=== PATIENT | male | born 1965 | race Caucasian/White ===

== ENCOUNTER 2022-10-05 06:06 | Day surgery (SDC) | payer BC ==
[2022-09-30 15:25] VITALS: BMI 31.8
[2022-10-05 06:36] VITALS: BP 154/92; PULSE 60; RESP 18; TEMP 97
[2022-10-05] MEDS ORDERED: TRANEXAMIC ACID 1000 MG/10 ML VIAL IVPUSH ONE (07:00)
[2022-10-05] MEDS ORDERED: CEFAZOLIN 2 GM in DEXTROSE 5%-WATER - 50 ML IVPB ONE (07:00)
[2022-10-05] MEDS ORDERED: MIDAZOLAM HCL 2 MG/2 ML SINGLE DOSE VIAL ONE (07:12)
[2022-10-05] MEDS ORDERED: ONDANSETRON 4 MG/2 ML VIAL ONE (07:12)
[2022-10-05] MEDS ORDERED: DEXAMETHASONE SOD PHOSPHATE 4 MG/1 ML VIAL ONE (07:12)
[2022-10-05] MEDS ORDERED: FENTANYL CITRATE/PF 50 MCG/ML VIAL ONE (07:13)
[2022-10-05] MEDS ORDERED: BUPIVACAINE HCL/PF 0.5% (5MG/ML) 10 ML VIAL ONE (07:13)
[2022-10-05] MEDS ORDERED: BUPIVACAINE LIPOSOME/PF (EXPAREL) 266 MG/20 ML VIAL ONE (07:13)
== END 2022-10-05 07:36 | disposition home or self-care (01) ==
LOC: FASUSAT 06:06
PROVIDERS: ATTEND Orthopaedic Surgery
PROC: 0SRC0JZ Replacement of Right Knee Joint with Synthetic Substitute, Open Approach (ICD-10-PCS; principal; 2022-10-05)
DX: Z53.8 Procedure and treatment not carried out for other reasons (principal); M17.11 Unilateral primary osteoarthritis, right knee

== ENCOUNTER 2022-10-24 05:59 | Day surgery (SDC) | payer BC ==
[2022-10-18 11:39] VITALS: BMI 31.8
[2022-10-24] MEDS ORDERED: oxyCODONE HCL 5 MG TABLET PO PRN ×3 (06:51→10:14)
[2022-10-24] MEDS ORDERED: ONDANSETRON 4 MG/2 ML VIAL IVPUSH PRN ×3 (06:51→12:52)
[2022-10-24] MEDS ORDERED: ACETAMINOPHEN 325 MG TABLET (FP) PO PRN (06:51)
[2022-10-24] MEDS ORDERED: LACTATED RINGERS SOLUTION 1,000 ML IV SCH (07:00)
[2022-10-24] MEDS ORDERED: CELECOXIB 200 MG CAPSULE PO ONE (07:00)
[2022-10-24] MEDS ORDERED: MIDAZOLAM HCL 2 MG/2 ML SINGLE DOSE VIAL ONE ×2 (07:17→08:08)
[2022-10-24] MEDS ORDERED: BUPIVACAINE HCL/PF 0.5% (5 MG/ML) 30 ML VIAL IJ ONE (07:18)
[2022-10-24] MEDS ORDERED: BUPIVACAINE LIPOSOME/PF (EXPAREL) 266 MG/20 ML VIAL ONE (07:18)
[2022-10-24] MEDS ORDERED: ACETAMINOPHEN INJECTION 100 ML IVPB ONE (07:19)
[2022-10-24] MEDS ORDERED: CEFAZOLIN 2 GM in DEXTROSE 5%-WATER - 50 ML IVPB ONE (07:30)
[2022-10-24] MEDS ORDERED: PROPOFOL 20 ML ONE ×3 (07:54→08:56)
[2022-10-24] MEDS ORDERED: ceFAZolin SODIUM 1 GM VIAL ONE ×2 (08:01)
[2022-10-24] MEDS ORDERED: TRANEXAMIC ACID 1000 MG/10 ML VIAL ONE ×2 (08:01→09:05)
[2022-10-24] MEDS ORDERED: ONDANSETRON 4 MG/2 ML VIAL ONE (08:34)
[2022-10-24] MEDS ORDERED: KETOROLAC TROMETHAMINE 30 MG/1 ML VIAL ONE (08:34)
[2022-10-24] MEDS ORDERED: DEXAMETHASONE SOD PHOSPHATE 4 MG/1 ML VIAL ONE (08:34)
[2022-10-24] MEDS ORDERED: MAGNESIUM HYDROX 2400MG/30ML ORAL SUSPENSION 30 ML CUP PO PRN (10:09)
[2022-10-24] MEDS ORDERED: MAG HYDROX/AL HYDROX/SIMETH 30 ML UNIT-DOSE CUP PO PRN (10:09)
[2022-10-24] MEDS ORDERED: morphine SULFATE 4 MG/ML VIAL IVPUSH PRN (10:15)
[2022-10-24] MEDS: oxyCODONE HCL 5 MG TABLET PO PRN ×3 (13:23→21:05)
[2022-10-24] MEDS: ACETAMINOPHEN 1000 MG/100 ML BAG IVPB SCH (16:31)
[2022-10-24] MEDS: CEFAZOLIN SODIUM 2 GM in DEXTROSE 5%-WATER 100 ML IVPB SCH (18:06)
[2022-10-24] MEDS: ASPIRIN 81 MG CHEWABLE TABLETS PO SCH (21:04)
[2022-10-24] MEDS: FAMOTIDINE 20 MG TABLET PO SCH (21:04)
[2022-10-24] MEDS: SENNOSIDES/DOCUSATE COMBO (SENNA PLUS) TABLET (UD) PO SCH (21:05)
[2022-10-25] MEDS: ACETAMINOPHEN 1000 MG/100 ML BAG IVPB SCH ×3 (00:10→16:03)
[2022-10-25] MEDS: oxyCODONE HCL 5 MG TABLET PO PRN ×6 (00:11→18:00)
[2022-10-25] MEDS: CEFAZOLIN SODIUM 2 GM in DEXTROSE 5%-WATER 100 ML IVPB SCH (01:14)
[2022-10-25 05:13] VITALS: RESP 18
[2022-10-25] MEDS: CEFAZOLIN 1 GM in DEXTROSE 5%-WATER - 50 ML IVPB SCH ×2 (08:02→16:03)
[2022-10-25] MEDS: FAMOTIDINE 20 MG TABLET PO SCH (09:20)
[2022-10-25] MEDS: ASPIRIN 81 MG CHEWABLE TABLETS PO SCH (09:20)
[2022-10-25] MEDS: SENNOSIDES/DOCUSATE COMBO (SENNA PLUS) TABLET (UD) PO SCH (09:21)
[2022-10-25] MEDS ORDERED: DEXAMETHASONE 4 MG TABLET (FP) PO ONE (10:00)
[2022-10-25] MEDS ORDERED: CELECOXIB 200 MG CAPSULE PO SCH (10:00)
[2022-10-25] MEDS ORDERED: MULTIVITAMINS (DAILY MVI) TABLET (FP) PO SCH (10:00)
[2022-10-25 12:06] VITALS: BP 130/60; PULSE 76; TEMP 98.3
== END 2022-10-25 18:58 | disposition home or self-care (01) ==
LOC: FASUSAT 05:59 → FM/S 12:04 → FASUSAT 10-25 18:58
PROVIDERS: ATTEND Orthopaedic Surgery
PROC: 0SRC0J9 Replacement of Right Knee Joint with Synthetic Substitute, Cemented, Open Approach (ICD-10-PCS; principal; 2022-10-24 08:11)
DX: M17.11 Unilateral primary osteoarthritis, right knee (principal)
CPT/HCPCS: 27447; C1776; 73560-TC-RT-FY; 94760; 97010-GP; 97116-GP; 97162-GP; C1889